=== PATIENT | female | born 1975 | race African-American/Black ===

== ENCOUNTER 2019-06-10 20:19 | Emergency (ER) | payer OTHER ==
[~2019-06-10] VITALS: Ht 170.2 cm; Wt 52.3 kg
[2019-06-10 20:22] VITALS: Ht 170.2 cm; Wt 52.3 kg
[2019-06-10] MEDS ORDERED: BENTYL10 MG (20:23)
[2019-06-10] MEDS ORDERED: ASPIRIN81 MG PO (20:24)
[2019-06-10] MEDS ORDERED: PROBIOTIC1 EAC1 PO (20:24)
[2019-06-10 21:12] LABS: BASOPHILS 0.3 % (0-2); EOSINOPHILS 2.8 % (0-7); HEMATOCRIT 41.8 % (36.0-48.0); HEMOGLOBIN 14.1 g/dL (12-16); IMMATURE GRANULOCYTES 0.2 % (0-5); LYMPHOCYTES 48.3 % (15-50); MCHC 33.7 g/dL (31.0-37.0); MEAN PLATELET VOLUME 10.1 fL (7.4-10.4); MONOCYTES 11.5 % (2-11); NEUTROPHILS 36.9 % (40-80); PLATELET COUNT 183 10x3/uL (130-400); RDW 12.8 % (11.5-14.5); WBC 5.7 10x3/uL (4.8-10.8)
[2019-06-10 21:26] LABS: CALC OSMOLALITY 274 mosm/kg (275-300); CALCIUM 9.2 mg/dL (8.5-10.1); CARBON DIOXIDE 29.1 mmol/L (21.0-32.0); CHLORIDE - SERUM 105 mmol/L (98-107); CREATININE - SERUM 0.9 mg/dL (0.6-1.3); GLUCOSE 83 mg/dL (74-106); POTASSIUM - SERUM 4.2 mmol/L (3.5-5.1); SODIUM 139 mmol/L (136-145); UREA NITROGEN 7 mg/dL (7-18); eGFR NON AFRICAN AMERICAN 72 mL/min (90-120)
[2019-06-10 21:35] LABS: ALBUMIN 4.1 g/dL (3.4-5.0); ALKALINE PHOSPHATASE 98 U/L (46-116); ALT (SGPT) 25 U/L (10-68); AMYLASE - SERUM 120 U/L (25-115); BILIRUBIN - TOTAL 0.53 mg/dL (0.2-1.3); LIPASE 147 U/L (73-393); PROTEIN - SERUM 7.9 g/dL (6.4-8.2); TROPONIN-I < 0.017 ng/mL (0.000-0.060)
[2019-06-10] MEDS ORDERED: ZOFRAN4 MG PO (22:03)
[2019-06-10 22:28] LABS: APPEARANCE CLEAR (CLEAR); BACTERIA FEW /hpf (NEGATIVE); BILIRUBIN NEGATIVE (NEGATIVE); COLOR YELLOW (YELLOW); GLUCOSE NEGATIVE (NEGATIVE); KETONE NEGATIVE (NEGATIVE); NITRITE NEGATIVE (NEGATIVE); PROTEIN NEGATIVE (NEGATIVE); RED CELLS - URINE 0-5 /hpf (0-5); UROBILINOGEN NORMAL (NORMAL); WHITE CELLS - URINE OCC /hpf (NEGATIVE)
[2019-06-10 22:30] LABS: HCG URINE NEGATIVE (NEGATIVE)
[2019-06-10 22:51] VITALS: BP 159/85
== END 2019-06-10 22:51 | disposition home or self-care (01) ==
LOC: D.ER 20:19
PROVIDERS: Family Medicine
DX: R10.9 Unspecified abdominal pain (principal); K58.9 Irritable bowel syndrome, unspecified